=== PATIENT | female | born 1965 | race Caucasian/White ===

== ENCOUNTER 2016-04-10 08:13 | Emergency (ER) | payer BC ==
--- NOTE | 2016-04-10 08:24 | Emergency Department Record ---
History of Present Illness - General Chief complaint: ENT Stated complaint: SINUS CONGESTION Time Seen by Provider: 04/10/16 08:22 Source: Patient Mode of Arrival: Ambulatory Limitations: No limitations - History of Present Illness Initial comments: The patient is here due to a one day hx of nasal congestion, drainage and pressure in the sinus area. She also has had a nonproductive cough. There is no fever, chills, BENNETT, SOB or ST. complaint: Other Onset/Timin -: Days(s) Consistency: Getting worse Improves with: None Worsens with: None Associated Symptoms: Cough, Other - Related Data Home Medications Medication Instructions Recorded Confirmed Last Taken Ascorbic Acid [Vitamin C] 500 mg PO DAILY PRN 05/28/14 04/10/16 Unknown Cromolyn Sodium [Nasal Allergy 13 ml NS ASDIR PRN 05/28/14 04/10/16 Unknown [place]] Diphenhydram/PE/Dm/Acetamin/GG 360 ml PO ASDIR PRN 05/28/14 04/10/16 Unknown [Mucinex Fast-Max Day-Nite Cold] Fexofenadine/Pseudoephedrine 1 each PO ASDIR PRN 05/28/14 04/10/16 Unknown [Kim-D 12 Hour Tablet] Previous Rx's Medication Instructions Recorded Doxycycline Monohydrate [Mondoxyne 100 mg PO BID #20 capsule 04/10/16 Nl] Prednisone [Prednisone 20Mg] 40 mg PO DAILY #10 tab 04/10/16 Allergies Allergy/AdvReac Type Severity Reaction Status Date / Time No Known Drug Allergies Allergy Verified 04/10/16 08:16 Travel Screening - Travel/Exposure Within Last 30 Days Have you traveled within the last 30 days?: No - Travel/Exposure Within Last Year Have you traveled outside the [place] in the last year?: No - Additonal Travel Details Have you been exposed to anyone with a communicable illness?: No - Travel Symptoms Symptom Screening: None Review of Systems Constitutional: Denies: Chills, Fever Eyes: Denies: Eye discharge ENT: Reports: Congestion. Denies: Ear pain Respiratory: Reports: Cough. Denies: Dyspnea Cardiovascular: Denies: Arrhythmia Past Medical History - SOCIAL HISTORY Smoking Status: Never smoker Alcohol Use: Occassional Drug Use: None - RESPIRATORY Hx Respiratory Disorders: No - CARDIOVASCULAR Hx Cardio Disorders: No - NEURO Hx Neuro Disorders: No - GI Hx GI Disorders: No - Hx Genitourinary Disorders: No - ENDOCRINE Hx Endocrine Disorders: No - MUSCULOSKELETAL Hx Musculoskeletal Disorders: No - PSYCH Hx Psych Problems: No - HEMATOLOGY/ONCOLOGY Hx Hematology/Oncology Disorders: No Family Medical History Any Significant Family History?: No Physical Exam - General General Appearance: Alert, Oriented x3, Cooperative, No acute distress - Head Head exam: Atraumatic, Normocephalic, Normal inspection - Eye Eye exam: Normal appearance, PERRL - ENT ENT exam: Normal exam, Mucous membranes moist, Normal external ear exam, Normal orophraynx, TM's normal bilaterally Nasal Exam: negative: Discharge, Sinus tenderness Throat exam: Normal inspection. negative: Tonsillar erythema, Tonsillar exudate - Neck Neck exam: Normal inspection, Full ROM. negative: Lymphadenopathy, Meningismus , Tenderness - Respiratory Respiratory exam: Normal lung sounds bilaterally. negative: Respiratory distress - Cardiovascular Cardiovascular Exam: Regular rate, Normal rhythm, Normal heart sounds - Extremities Extremities exam: Normal inspection, Full ROM, Normal capillary refill. negative: Tenderness Course Vital Signs 04/10/16 08:15 Temperature 97.6 F Pulse Rate 101 H Respiratory 16 Rate Blood Pressure 146/92 Pulse Ox 98 - Reevaluation(s) Reevaluation #1: I did explain to the patient that she most likely has a viral URI causing her problems. She is to continue her home medicines and add the Prednisone for congestion. She is to take the Doxycycline if not better in 4-5 days or sooner if getting worse. 04/10/16 08:36 Disposition Disposition: Discharge Clinical Impression: Upper respiratory infection, acute Disposition: Home, Self-Care Condition: (1) Good Instructions: Upper Respiratory Infection (ED) Additional Instructions: Please continue the Flonase and Kim-D. Take the Prednisone as directed. Please start the Doxy if not better in 4-5 days. Return to the ER if worse. Prescriptions: Doxycycline Monohydrate [Mondoxyne Nl] 100 mg PO BID #20 capsule Prednisone [Prednisone 20Mg] 40 mg PO DAILY #10 tab Forms: Patient Portal Access Time of Disposition: 08:33
== END 2016-04-10 08:37 | disposition home or self-care (01) ==
LOC: ER 08:13
DX: J06.9 Acute upper respiratory infection, unspecified (principal); R05 Cough; R51 Headache
CPT/HCPCS: 99282

== ENCOUNTER 2019-05-05 02:07 | Emergency (ER) | payer BC ==
--- NOTE | 2019-05-05 02:21 | Emergency Department Record ---
History of Present Illness - General Chief Complaint: Abdominal Pain Stated Complaint: ABDOMINAL PAIN Time Seen by Provider: 05/05/19 02:11 Source: Patient Mode of Arrival: Ambulatory Limitations: No limitations - History of Present Illness Initial Comments: The patient is here due to a 4 day hx of diffuse abdominal pain with diarrhea. The symptoms started 4 days ago and the diarrhea was very severe for 2 days. The patient was seen on day # 3 and had labs and stool studies performed. Her lab work was WNL's and her stool was neg for any bacterial infections but pos for WBC's. Yesterday she did take Immodium and since has had no diarrhea. Now for the last 24 hours the abdominal cramping seems to be worsening but she has had no fever, nausea, or vomiting. Additionally the patient has been drinking fluids well and eating small amounts without difficulty or vomiting. MD Complaint: Abdominal pain Onset/Timin -: Days(s) Location: Diffuse - Related Data Home Medications Medication Instructions Recorded Confirmed Last Taken Estrogens, Conjugated [Premarin] 1 gm VG DAILY 05/05/19 05/05/19 Unknown Previous Rx's Medication Instructions Recorded Azithromycin [Zithromax] 500 mg PO DAILY #6 tablet 05/05/19 Allergies Allergy/AdvReac Type Severity Reaction Status Date / Time No Known Drug Allergies Allergy Verified 05/05/19 02:13 Review of Systems Constitutional: Denies: Chills, Fever Eyes: Denies: Eye discharge ENT: Denies: Congestion Respiratory: Denies: Cough, Dyspnea Past Medical History - SOCIAL HISTORY Smoking Status: Never smoker Drug Use: None - RESPIRATORY Hx Respiratory Disorders: No - CARDIOVASCULAR Hx Cardio Disorders: No - NEURO Hx Neuro Disorders: No - GI Hx GI Disorders: No - Hx Genitourinary Disorders: No - ENDOCRINE Hx Endocrine Disorders: No - MUSCULOSKELETAL Hx Musculoskeletal Disorders: No - PSYCH Hx Psych Problems: No - HEMATOLOGY/ONCOLOGY Hx Hematology/Oncology Disorders: No Physical Exam - General General Appearance: Alert, Oriented x3, Cooperative, No acute distress - Head Head exam: Atraumatic, Normocephalic, Normal inspection - Eye Eye exam: Normal appearance - Neck Neck exam: Normal inspection, Full ROM. negative: Tenderness - Respiratory Respiratory exam: Normal lung sounds bilaterally. negative: Respiratory distress - Cardiovascular Cardiovascular Exam: Regular rate, Normal rhythm, Normal heart sounds - GI/Abdominal GI/Abdominal exam: Soft, Normal bowel sounds, Tenderness (There is mild diffuse tenderness in all 4 quads.). negative: Diminished bowel sounds, Distended, Guarding, Hernia, Rebound, Rigid - Extremities Extremities exam: Normal inspection, Full ROM, Normal capillary refill. negative: Tenderness - Neurological Neurological exam: Alert. negative: Motor sensory deficit Course Vital Signs 05/05/19 02:14 Temperature 99.1 F Pulse Rate [ 103 H Pulse Ox Probe] Respiratory 20 Rate Blood Pressure 128/87 [Left Arm] Pulse Ox 96 - Reevaluation(s) Reevaluation #1: The patient is doing very well at this time with a repeat temp of 98.1.. She has had no vomiting or diarrhea here in the ER. On exam her abdomen is soft with very mild tenderness in mainly the lower abdomen. I did discuss the findings of the colitis with her and will emperically treat her for infections diarrhea due to the WBC's in the stool. She is to F/U with GI later this week and will need to return to the ER for any worsening symptoms. 05/05/19 03:16 Medical Decision Making - Data Complexity MDM Data: Labs Ordered and/or Reviewed, X-Ray Ordered and/or Reviewed - Lab Data Result diagrams: 05/05/19 02:34 05/05/19 02:34 - Radiology Data Radiology results: Report reviewed (CT: Mild colitis, O/W neg.) Disposition Disposition: Discharge Clinical Impression: Colitis Disposition: Home, Self-Care Condition: (2) Stable Instructions: Colitis (ED) Additional Instructions: Please drink plenty of fluids and use Tylenol for pain. Please continue the Zithromax and do not take any Immodium. Please see one of the GI doctors later this week in the Specialty clinic. Return to the ER for any worsening symptoms, pain, fever, or vomiting. Prescriptions: Azithromycin [Zithromax] 500 mg PO DAILY #6 tablet Referrals: [facility] [Provider Group] Forms: Patient Portal Access Time of Disposition: 03:20 Quality - Quality Measures Quality Measures: N/A - Blood Pressure Screening View Details: Yes Does Patient Have Any of the Following: No Blood Pressure Classification: Pre-Hypertensive BP Reading Systolic Measurement: 128 Diastolic Measurement: 88 Screening for High Blood Pressure: < Pre-Hypertensive BP, F/U Documented > [G8950] Pre-Hypertensive Follow-up Interventions: Referral to alternative/primary care provider.
[2019-05-05 02:42] LABS: ABSOLUTE NEUTROPHIL COUNT 3.61; BASO % 0.5 % (0-6); EOS % 4.2 % (0-6); GRAN % 63.2 % (47-80); HEMATOCRIT 39.3 % (35.0-47.0); HEMOGLOBIN 12.9 gm/dl (11.6-16.0); MEAN CELL VOLUME 93.1 fl (81-97); MEAN CORPUSCULAR HEMOGLOBIN 30.6 pg (27-33); MEAN CORPUSCULAR HGB CONC 32.8 g/dl (32-36); MEAN PLATELET VOLUME 9.1 fl (7.4-10.4); MONO % 12.1 % (0-9); PLATELET COUNT 232 K/uL (130-400); RED BLOOD COUNT 4.22 M/uL (3.80-5.40); RED CELL DISTRIBUTION WIDTH 12.4 % (11.5-14.5); WHITE BLOOD COUNT W/O DIFF 5.7 K/uL (4.2-12.2)
[2019-05-05 02:58] LABS: BLOOD UREA NITROGEN 11 mg/dL (6-20); CREATININE 0.5 mg/dL (0.5-0.9); EST GLOMERULAR FILTRATION RATE > 60 mL/min; LIPASE 19 U/L (13-60); TOTAL PROTEIN 6.8 g/dL (6.6-8.7)
[2019-05-05 03:00] LABS: GLUCOSE,RANDOM 137 mg/dL (74-109)
[2019-05-05 03:03] LABS: ALB/GLOB RATIO 1.3 (1.1-1.8); ALBUMIN 3.8 g/dL (4.0-5.0); ALKALINE PHOSPHATASE 52 U/L (35-104); ALT/SGPT 11 U/L (<33); AST/SGOT 12 U/L (10.0-35.0)
--- NOTE | 2019-05-05 03:03 | CT SCAN REPORT ---
EXAMINATION: CT Abdomen and Pelvis without IV Contrast EXAM DATE: 05/05/2019 2:53 AM TECHNIQUE: Standard protocol CT imaging of the abdomen and pelvis was performed without intravenous c ontrast. INDICATION: abdominal cramping COMPARISON: None ENCOUNTER: Not applicable CT ABDOMEN AND PELVIS FINDINGS: Lung Bases: Included extent of the lung bases are clear. Hepatobiliary: The liver has a normal size with a smooth surface. There is no biliary dilatation and the gallbladder is unremarkable. Pancreas: The pancreas is normal. Spleen: The spleen is not enlarged. Adrenals: The adrenal glands are normal. Kidneys, Ureters, & Bladder: Both kidneys have a normal size and morphology. There is no hydronephro sis. No renal calculi are present. Both ureters have a normal course and caliber and the urinary blad emil a normal morphology and uniform wall thickness. No ureteral or bladder calculi are identified. Gastrointestinal: The stomach and small bowel are normal with no obstruction or inflammation. The hector endix is normal. The large bowel demonstrates diffuse mild wall thickening and associated inflammator y changes compatible with colitis. Reproductive Organs: Unremarkable Lymphatic System: There is no adenopathy within the abdomen or pelvis. Vasculature: Normal caliber abdominal aorta Peritoneum: No free fluid, free air, or inflammation Abdominal wall & Musculoskeletal: There is multilevel lower lumbar degenerative disc disease. Assessment of the solid organs, soft tissues, and vascular structures is overall limited on noncontra st imaging, IMPRESSION: 1. Findings compatible with millan colitis. 2. Additional findings, as above. Dictated by: Michell Calhoun MD on 05/05/2019 2:54 AM. .
[2019-05-05] MEDS ORDERED: AZITHROMYCIN 500 MG TABLET PO ONE (03:08)
== END 2019-05-05 03:30 | disposition home or self-care (01) ==
LOC: ER 02:07
DX: K52.9 Noninfective gastroenteritis and colitis, unspecified (principal); R10.84 Generalized abdominal pain
CPT/HCPCS: 74176; 80053; 83690; 85025; 99284